=== PATIENT | male | born 1985 | race African-American/Black ===

== ENCOUNTER 2020-05-23 18:56 | Inpatient (IN) | payer MEDICAID, OTHER ==
[~2020-05-23] VITALS: Ht 172.7 cm; Wt 103.1 kg
[2020-05-23] MEDS ORDERED: cefTRIAXone SOD 1,000 MG VL IM ONE (19:45)
[2020-05-23] MEDS ORDERED: CLINDAMYCIN 900MG IV 50 ML IV ONE (21:45)
[2020-05-23] MEDS ORDERED: cefTRIAXone 1GM/50ML D5W 50 ML IV ONE (22:00)
[2020-05-23] MEDS ORDERED: HYDROcodone-ACET 10/325MG TAB PO ONE (23:15)
[2020-05-23 23:18] LABS: Basophils # (auto) 0.1 10 ^3/uL (0-0.2); Basophils % (auto) 1.3 % (0.0-2.0); Eosinophils # (auto) 0.2 10 ^3/uL (0-0.8); Eosinophils % (auto) 3.8 % (0.0-7.0); Hematocrit 47.9 % (41.0-53.0); Hemoglobin 16.2 g/dL (13.5-17.5); Lymphocytes # (auto) 2.5 10 ^3/uL (0.4-5.4); Mean Corpuscular Hgb Conc. 33.7 g/dL (32.0-36.0); Mean Corpuscular Volume 97.8 fL (80.0-100.0); Monocytes # (auto) 0.6 10 ^3/uL (0-1.3); Neutrophils # (auto) 2.5 10 ^3/uL (1.6-8.6); Neutrophils % (auto) 41.9 % (37.0-80.0); Nucleated Red Blood Cells % 0.2 %; Platelet Count (auto) 279 10^3/uL (140-450); Red Cell Distribution Width 13.8 % (11.8-14.3); White Blood Cell 5.9 10^3/uL (4.4-10.8)
[2020-05-24] MEDS ORDERED: IOHEXOL 300 MG/ML 100ML BOTTLE IJ ONE (00:50)
[2020-05-24 01:37] LABS: Albumin 3.9 g/dL (3.4-5.0); BUN/Creatinine Ratio 19.6; Calcium 8.7 mg/dL (8.5-10.1); Potassium 4.2 mmol/L (3.5-5.1)
[2020-05-24 01:39] LABS: Bilirubin, Total 0.3 mg/dL (0.2-1.0)
[2020-05-24] MEDS ORDERED: ACETAMINOPHEN 325 MG TAB PO PRN (03:15)
[2020-05-24] MEDS ORDERED: TEMAZEPAM 15 MG CAP PO PRN (03:15)
[2020-05-24] MEDS ORDERED: ONDANSETRON HCL 4 MG/2 ML VIAL IV PRN (03:15)
[2020-05-24] MEDS ORDERED: HYDROcodone-ACET 5/325MG TAB PO PRN (03:15)
[2020-05-24 04:28] LABS: INR 0.97 (0.9-1.15); Partial Thromboplastin Time 25.3 sec (23.0-31.2)
[2020-05-24] MEDS: CLINDAMYCIN 600MG IV 50 ML IV SCH ×3 (06:22→21:07)
[2020-05-24] MEDS: FAMOTIDINE 20 MG TAB PO SCH ×2 (08:18→21:07)
[2020-05-24] MEDS: cefTRIAXone 1GM/50ML D5W 50 ML IV SCH (08:18)
[2020-05-24] MEDS: MORPHINE SULFATE 4 MG/ML SYR/VIAL IV PRN ×2 (19:28→23:35)
[2020-05-25] VITALS (11 sets, daily range): BP systolic 112–155; BP diastolic 63–84
[2020-05-25] MEDS: CLINDAMYCIN 600MG IV 50 ML IV SCH ×3 (05:46→21:58)
[2020-05-25] MEDS: MORPHINE SULFATE 4 MG/ML SYR/VIAL IV PRN ×2 (05:47→21:58)
[2020-05-25 07:46] LABS: Basophils # (auto) 0 10 ^3/uL (0-0.2); Basophils % (auto) 0.9 % (0.0-2.0); Eosinophils # (auto) 0.2 10 ^3/uL (0-0.8); Eosinophils % (auto) 4.2 % (0.0-7.0); Hematocrit 44.6 % (41.0-53.0); Hemoglobin 15.2 g/dL (13.5-17.5); Lymphocytes # (auto) 1.5 10 ^3/uL (0.4-5.4); Lymphocytes % (auto) 27.5 % (10.0-50.0); Mean Corpuscular Hemoglobin 33.5 pg (28.0-32.0); Mean Corpuscular Volume 98.6 fL (80.0-100.0); Monocytes # (auto) 0.7 10 ^3/uL (0-1.3); Monocytes % (auto) 12.1 % (0.0-12.0); Neutrophils # (auto) 3.1 10 ^3/uL (1.6-8.6); Neutrophils % (auto) 55.3 % (37.0-80.0); Nucleated Red Blood Cells % 0.2 %; Platelet Count (auto) 217 10^3/uL (140-450); Red Blood Cells 4.52 10^6/uL (4.5-5.90); Red Cell Distribution Width 13.7 % (11.8-14.3); White Blood Cell 5.6 10^3/uL (4.4-10.8)
[2020-05-25 07:56] LABS: BUN/Creatinine Ratio 18.5; Calcium 8.7 mg/dL (8.5-10.1); Potassium 4.6 mmol/L (3.5-5.1)
[2020-05-25] MEDS: FAMOTIDINE 20 MG TAB PO SCH ×2 (09:19→21:58)
[2020-05-25] MEDS: cefTRIAXone 1GM/50ML D5W 50 ML IV SCH (09:19)
[2020-05-25] MEDS ORDERED: fentaNYL CITRATE 100 MCG/2 ML VL ONE (14:20)
[2020-05-26 05:00] VITALS: BP 130/71
[2020-05-26] MEDS: MORPHINE SULFATE 4 MG/ML SYR/VIAL IV PRN (05:52)
[2020-05-26] MEDS: CLINDAMYCIN 600MG IV 50 ML IV SCH (06:30)
[2020-05-26] MEDS: cefTRIAXone 1GM/50ML D5W 50 ML IV SCH (09:08)
[2020-05-26] MEDS: FAMOTIDINE 20 MG TAB PO SCH (09:08)
[2020-05-26 09:27] VITALS: BP 116/79
[2020-05-26] MEDS ORDERED: LEVO500T31 PO (12:01)
[2020-05-26 13:13] VITALS: BP 155/105
[2020-05-27] MEDS ORDERED: CLIN300C8 PO (11:01)
== END 2020-05-26 13:40 | disposition home or self-care (01) | DRG 383 ==
LOC: ER 18:56 → OVERFLOW 18:57 → WEST WING 05-25 02:22
PROVIDERS: ADMIT Nurse Practitioner; ATTEND Internal Medicine
PROC: 0J9P3ZX Drainage of Left Lower Leg Subcutaneous Tissue and Fascia, Percutaneous Approach, Diagnostic (ICD-10-PCS; principal; 2020-05-25)
DX: L03.116 Cellulitis of left lower limb (principal); S81.832A Puncture wound without foreign body, left lower leg, initial encounter; L02.416 Cutaneous abscess of left lower limb; W34.00XA Accidental discharge from unspecified firearms or gun, initial encounter; Z20.822 Contact with and (suspected) exposure to COVID-19; Z82.49 Family history of ischemic heart disease and other diseases of the circulatory system; Z88.0 Allergy status to penicillin; B96.20 Unspecified Escherichia coli [E. coli] as the cause of diseases classified elsewhere; B95.62 Methicillin resistant Staphylococcus aureus infection as the cause of diseases classified elsewhere
CPT/HCPCS: 10022; 36415; 73700; 73701; 76942; 80048; 80053; 82550; 83605; 85025; 85610; 85730; 87070; 87077; 87081; 87186; 87205; 87426; 93971; G0378; J0696; J2405; J3490